=== PATIENT | female | born 1930 | race Caucasian/White ===

== ENCOUNTER 2017-12-25 06:24 | Inpatient (IN) | END 2017-12-29 17:20 | disposition home health service (06) | DRG 644 ==

== ENCOUNTER 2018-01-02 14:46 | Outpatient (CLI) | END 2018-01-02 15:42 | disposition home or self-care (01) ==

== ENCOUNTER 2018-01-06 18:56 | Inpatient (IN) | END 2018-02-04 13:40 | disposition home or self-care (01) | DRG 40 ==